=== PATIENT | female | born 1990 | race Caucasian/White ===

== ENCOUNTER 2021-03-05 09:06 | Emergency (ER) | payer OTHER ==
[~2021-03-05] VITALS: Ht 157.5 cm; Wt 81.6 kg
--- NOTE | 2021-03-05 09:12 | NUR ---
Pt ambulated to bed 08 with even gait
[2021-03-05 09:15] VITALS: BP 132/83
--- NOTE | 2021-03-05 09:15 | NUR ---
Dr. Shah is evaluating patient at bedside
[2021-03-05] MEDS ORDERED: IBUPROFEN 600 MG TAB PO ONE (09:20)
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
--- NOTE | 2021-03-05 09:55 | NUR ---
RAD AT BEDSIDE
[2021-03-05] MEDS ORDERED: ACET-10509 PO (10:39)
[2021-03-05] MEDS ORDERED: IBUP-2213 PO (10:39)
[2021-03-05 10:48] VITALS: BP 132/83
--- NOTE | 2021-03-05 10:48 | NUR ---
Patient discharged with v/s stable. Written and verbal after care instructions given and explained. Patient alert, oriented and verbalized understanding of instructions. Ambulatory with AUNT to car. All questions addressed prior to discharge. ID band removed. Patient advised to follow up with PMD. Rx of ACETEMINOPHEN, IBUPROFEN (SENT TO PHARM) given. Patient educated on indication of medication including possible reaction and side effects. Opportunity to ask questions provided and answered.
== END 2021-03-05 10:48 | disposition home or self-care (01) ==
LOC: MED 09:06
DX: S80.01XA Contusion of right knee, initial encounter (principal); V49.49XA Driver injured in collision with other motor vehicles in traffic accident, initial encounter; Y93.89 Activity, other specified; Y92.410 Unspecified street and highway as the place of occurrence of the external cause; Y99.8 Other external cause status
CPT/HCPCS: 73562; 99283; Q0092